=== PATIENT | male | born 1965 | race Caucasian/White ===

== ENCOUNTER 2022-06-22 10:56 | Day surgery (SDC) | payer MEDICARE ==
[~2022-06-22 10:56] MED LIST: LACTATED RINGERS 1,000 ML IV SCH; LIDOCAINE 1% (10MG/ML) FOR IV START INTRADERMA PRN; ONDANSETRON 4 MG/2 ML VIAL IVP PRN
[2022-06-22] MEDS ORDERED: PROPOFOL 10 MG/ML 20 ML VIAL IV ONE (11:23)
[2022-06-22] MEDS ORDERED: LIDOCAINE 2% INJ 20 MG/ML (2 ML VIAL) ONE (11:23)
--- NOTE | 2022-06-22 11:24 | P.GSHP ---
History of Present Illness H&P Date: 06/22/22 Chief Complaint: Family history of colon cancer This a 56-year-old male who presents today for colonoscopy. Patient has a strong family history of colon cancer with his mother having colon cancer. She denies any significant GI complaints. Past Medical History Past Medical History: COPD, CVA/TIA, Hyperlipidemia, Hypertension Additional Past Medical History / Comment(s): pacemaker, spinal cord injury tia 4 yrs ago has plate to anterior neck from surgery. History of Any Multi-Drug Resistant Organisms: None Reported Past Surgical History: Back Surgery, Orthopedic Surgery, Pacemaker Additional Past Surgical History / Comment(s): cervical fusion X2 c2 -t1 fusion Past Anesthesia/Blood Transfusion Reactions: No Reported Reaction Type of Cardiac Device: Permanent Pacemaker Device Placement Date:: 2012 Smoking Status: Current every day smoker - Past Family History Mother Family Medical History: Cancer Medications and Allergies Home Medications Medication Instructions Recorded Confirmed Type Gabapentin [Neurontin] 300 mg PO TID 10/30/14 06/22/22 History PARoxetine HCL 30 mg PO BID 10/30/14 06/22/22 History Zafirlukast [Accolate] 20 mg PO BID 10/30/14 06/22/22 History Atorvastatin [Lipitor] 40 mg PO HS 02/24/16 06/22/22 History atenoloL [Tenormin] 25 mg PO DAILY 02/24/16 06/22/22 History oxyCODONE-APAP 10-325MG [Percocet 1 tab PO Q8HR PRN 06/19/22 06/22/22 History 10-325 mg] Allergies Allergy/AdvReac Type Severity Reaction Status Date / Time No Known Allergies Allergy Verified 06/22/22 11:18 Surgical - Exam - General well developed, well nourished, no distress - Eyes PERRL - ENT normal pinna - Neck no masses - Respiratory normal expansion - Cardiovascular Rhythm: regular - Abdomen Abdomen: soft, non tender Assessment and Plan Assessment: Family history of colon cancer. We'll perform colonoscopy.
[2022-06-22 11:28] VITALS: RESP 16; TEMP 97
--- NOTE | 2022-06-22 11:36 | P.OP ---
Date of Procedure: 06/22/22 Preoperative Diagnosis: Family History of colon cancer Postoperative Diagnosis: Normal colon Procedure(s) Performed: Colonoscopy Anesthesia: MAC Surgeon: Ok Shepherd Pathology: none sent Condition: stable Disposition: PACU Description of Procedure: PROCEDURE: The patient was placed on the endoscopy table in the lateral position. Digital rectal examination was performed which revealed no abnormalities. The prostate was symmetrical without nodules. Flexible colonoscope was then placed in the patient's anus and passed throughout the entire colon. The ileocecal valve was visualized. The cecum, ascending, transverse, descending and sigmoid colon were normal. The rectum was normal as well. There were no masses, polyps or diverticula noted in the entire colon. SUMMARY OF FINDINGS: Normal colonoscopy.
[2022-06-22 11:46] LABS: Glucose,Whole Blood 215 mg/dL (70-110)
[2022-06-22 11:52] LABS: Glucose,Whole Blood 208 mg/dL (70-110)
[2022-06-22] MEDS ORDERED: INSULIN ASPART (NovoLOG) 100 UNIT/ML VIAL SQ ONE (12:00)
[2022-06-22 12:02] VITALS: BP 131/62; PULSE 74
== END 2022-06-22 12:27 | disposition home or self-care (01) ==
LOC: ORWHC2ENDO 10:56
PROVIDERS: ATTEND Surgery
DX: Z12.11 Encounter for screening for malignant neoplasm of colon (principal); Z86.010 Personal history of colon polyps; Z80.0 Family history of malignant neoplasm of digestive organs; J44.9 Chronic obstructive pulmonary disease, unspecified; F17.200 Nicotine dependence, unspecified, uncomplicated; I10 Essential (primary) hypertension; E78.5 Hyperlipidemia, unspecified; E11.9 Type 2 diabetes mellitus without complications; Z86.73 Personal history of transient ischemic attack (TIA), and cerebral infarction without residual deficits; Z95.0 Presence of cardiac pacemaker; Z98.1 Arthrodesis status; Z79.84 Long term (current) use of oral hypoglycemic drugs; Z79.899 Other long term (current) drug therapy
CPT/HCPCS: G0121; J2704; J2001; 45378